=== PATIENT | male | born 1970 | race Caucasian/White ===

== ENCOUNTER 2021-03-25 10:43 | Emergency (ER) | payer OTHER ==
[~2021-03-25] VITALS: Ht 172.7 cm; Wt 79.4 kg
[2021-03-25] MEDS ORDERED: ASPIRIN 81 MG TAB.CHEW PO ONE (11:00)
[2021-03-25] MEDS ORDERED: ASPIRIN 81 MG TAB.CHEW ONE (11:10)
[2021-03-25 11:26] LABS: HEMATOCRIT 42.1 % (36.7-47.1); MEAN CORPUSCULAR HEMOGLOBIN 29.6 uug (23.8-33.4); MEAN CORPUSCULAR VOLUME 88.3 fL (73.0-96.2); PLATELET COUNT (AUTO) 196 K/uL (152-348)
[2021-03-25 11:50] LABS: BILIRUBIN,DIRECT 0.1 mg/dL (0.0-0.2); BILIRUBIN,TOTAL 0.5 mg/dL (0.2-1.0); CREATININE 1.1 mg/dL (0.6-1.3); POTASSIUM 3.6 mmol/L (3.5-5.1); TOTAL PROTEIN, SERUM 7.4 g/dL (6.4-8.2)
--- NOTE | 2021-03-25 13:41 | NUR ---
Patient does not wish to proceed with medical care recommended by . Patient and his daughter given information related to possible complications, up to and including , which could occur as a result of leaving the hospital at this time. Patient and his daughter verbalized understanding of risks involved due to leaving against medical advice. Patient has signed AMA form. Stressed follow up with pmd or return to ER for worsening s/s.
[2021-03-25 13:43] VITALS: BP 118/83
== END 2021-03-25 13:43 | disposition left against medical advice (07) ==
LOC: ER 10:43
DX: R07.2 Precordial pain (principal); I10 Essential (primary) hypertension
CPT/HCPCS: 36415; 70030-TC; 71045; 85025; 93005; A4663

== ENCOUNTER 2024-10-23 13:41 | Emergency (ER) | payer OTHER ==
[~2024-10-23] VITALS: Ht 172.7 cm; Wt 79.4 kg
[2024-10-23 14:21] LABS: BASOPHILS # (AUTO) 0.1 K/UL (0.0-0.2); BASOPHILS % (AUTO) 0.5 % (0.0-2.0); EOSINOPHILS # (AUTO) 0.2 K/uL (0.0-0.7); EOSINOPHILS % (AUTO) 1.5 % (0.0-7.0); HEMATOCRIT 43.4 % (36.7-47.1); HEMOGLOBIN 14.6 g/dL (12.5-16.3); LYMPHOCYTES # (AUTO) 2.9 K/uL (0.8-4.8); LYMPHOCYTES % (AUTO) 26.2 % (20.5-51.5); MEAN CORPUSCULAR HEMOGLOBIN 29.3 uug (23.8-33.4); MEAN CORPUSCULAR HGB CONC 34 g/dL (32.5-36.3); MEAN CORPUSCULAR VOLUME 86.9 fL (73.0-96.2); MONOCYTES # (AUTO) 0.8 K/uL (0.1-1.30); MONOCYTES % (AUTO) 7.5 % (0.0-11.0); NEUTROPHILS # (AUTO) 7.1 K/uL (1.8-8.9); NEUTROPHILS % (AUTO) 64.3 % (38.5-71.5); PLATELET COUNT (AUTO) 195 K/uL (152-348); RED BLOOD CELL COUNT(AUTO) 4.99 MIL/uL (4.06-5.63); RED CELL DISTRIBUTION WIDTH 13.8 % (12.1-16.2)
[2024-10-23 14:28] LABS: CALCIUM 9.3 mg/dL (8.5-10.1); CARBON DIOXIDE 29 mmol/L (21-32); CHLORIDE 108 mmol/L (98-107); CREATININE 0.9 mg/dL (0.6-1.3); GLUCOSE 102 mg/dL (74-106); POTASSIUM 3.9 mmol/L (3.5-5.1); SODIUM SERUM 143 mmol/L (136-145); UREA NITROGEN, BLOOD 23 mg/dL (7-18)
[2024-10-23] MEDS ORDERED: IV NORMAL SALINE 250 ML IV ONE (14:28)
[2024-10-23 14:29] LABS: DIFFERENTIAL COMMENT 1
[2024-10-23] MEDS ORDERED: IOHEXOL 350 100 ML INFUS..BTL ONE (14:29)
[2024-10-23] MEDS ORDERED: SWABABLE VALVE TRANSFER SET EA MC ONE (14:29)
[2024-10-23 14:33] LABS: ALANINE AMINOTRANSFERASE 39 U/L (16-63); ALBUMIN 3.8 g/dL (3.4-5.0); ALKALINE PHOSPHATASE 121 U/L (50-136); ASPARTATE AMINOTRANSFERASE 27 U/L (15-37); BILIRUBIN,DIRECT 0.2 mg/dL (0.0-0.2); BILIRUBIN,TOTAL 0.5 mg/dL (0.2-1.0); TOTAL PROTEIN, SERUM 7.5 g/dL (6.4-8.2)
[2024-10-23] MEDS ORDERED: CLOP75TA15 PO (14:41)
[2024-10-23] MEDS ORDERED: ASPI81TA31 PO (14:41)
[2024-10-23] MEDS ORDERED: ATOR40TA PO (14:41)
[2024-10-23 15:56] VITALS: BP 140/82; O2SAT 98
== END 2024-10-23 15:58 | disposition home or self-care (01) ==
LOC: ER 13:48
DX: R20.0 Anesthesia of skin (principal); R42 Dizziness and giddiness; Z79.02 Long term (current) use of antithrombotics/antiplatelets; Z79.82 Long term (current) use of aspirin; Z79.899 Other long term (current) drug therapy; Z88.0 Allergy status to penicillin
CPT/HCPCS: 99291; 70450; 71045; 80061; 80076; 80048; 82962; 85025; 85730; 86850; 86900; 86901; 84484; 36415; 70496; 70498; 93005; Q9967; A4606; A4663